=== PATIENT | female | born 1985 | race Caucasian/White ===

== ENCOUNTER 2018-04-20 17:18 | Outpatient (CLI) | payer BC ==
[2018-04-20 18:12] LABS: Bilirubin,Urine Negative (Negative); Glucose,Urine (UA) Negative (Negative); PH, Urine 6.5 (5.0-8.0); Protein,Urine Trace (Negative); Urobilinogen,Urine <2.0 mg/dL (<2.0)
[2018-04-20 18:18] LABS: Appearance,Urine Cloudy (Clear); Bacteria,Urine Rare /hpf; Blood,Urine Trace (Negative); Color,Urine Yellow; Ketones,Urine 1+ (Negative); Leukocyte Esterase,Urine Trace (Negative); Mucus,Urine Few /hpf; Nitrite,Urine Negative (Negative); RBC,Urine 5 /hpf (0-5); Squamous Epithelial Cell,Urine 60 /hpf (0-4); WBC,Urine 2 /hpf (0-5)
[2018-04-20] MEDS ORDERED: DEXTROSE 5%-LACTATED RINGERS 1,000 ML IV ONE (19:15)
[2018-04-20 19:53] VITALS: BP 107/63; PULSE 105; RESP 16
--- NOTE | 2018-04-21 12:47 | P.MSEPDOC ---
Presenting Problems - Arrival Data Date of Arrival on Unit: 04/20/18 Time of Arrival on Unit: 17:18 Mode of Transport: Ambulatory - Complaint Comment: lower abd cramping, light headed, dizzy, episode of diarhhea Medical History - Information : 4 Para: 3 Term: 3 : 0 Abortions: Spontaneous or Elective: 0 Number of Living Children: 3 - Gestational Age Gestational Age by CARLY (wks/days): 27 Weeks and 6 Days Review of Systems - Review of Systems Constitutional: No problems Breast: No problems ENT: No problems Cardiovascular: No problems Respiratory: No problems Gastrointestinal: No problems Genitourinary: No problems Musculoskeletal: No problems Neurological: No problems Skin: No problems Vital Signs - Pulse Right Brachial Pulse Rate: 105 Pulse Assessment Method: Automatic Cuff - Respirations Respiratory Rate: 16 Oxygen Delivery Method: Room Air O2 Sat by Pulse Oximetry: 98 - Blood Pressure Right Arm Blood Pressure: 107/63 Blood Pressure Mean: 77 Blood Pressure Source: Automatic Cuff Medical Screen Scoring (Pre) - Cervical Exam Dilation: 0 cm = 0 Membranes: Intact - Uterine Contractions Frequency: N/A - Maternal Vital Signs Maternal Temperature: N/A Maternal Blood Pressure: N/A Signs of Preeclampsia: N/A Maternal Respirations: N/A - Assessment Baseline FHR: 145 Heart Rate - NICHD Category: Category I (Normal) = 0 Position: N/A Station: N/A - Total Score Total Score (Pre): 0 - Level of Risk Level of Risk: Low (0-5) Physician Notification (Pre) - Notification Comment Comment: Orders to d/c recieved by previous shift following infusion of IV hydration and pulse less than 90 bpm Disposition - Disposition OB Disposition: Discharge to home Discharge Date: 04/20/18 Discharge Time: 19:30 I agree with the RN Medical Screening Exam: Yes Risk & Benefit of care provided described in d/c instruction: Yes Diagnosis: RELATED CONDITIONS, UNSPECIFIED, SECOND TRIMESTER
== END 2018-04-20 19:30 | disposition home or self-care (01) ==
LOC: FBPOP 17:18
PROVIDERS: ATTEND Obstetrics & Gynecology
DX: O26.892 Other specified pregnancy related conditions, second trimester (principal); O62.9 Abnormality of forces of labor, unspecified; R42 Dizziness and giddiness; R51 Headache; Z3A.27 27 weeks gestation of pregnancy
CPT/HCPCS: 81001; 96360; 99214

== ENCOUNTER 2019-03-05 16:42 | Emergency (ER) | payer BC ==
[2019-03-05 16:50] VITALS: TEMP 97.8
[2019-03-05] MEDS ORDERED: METOCLOPRAMIDE 5 MG/ML 2 ML VIAL IVP STA (17:09)
[2019-03-05] MEDS ORDERED: KETOROLAC 30 MG/ML 1 ML VIAL IVP STA (17:09)
[2019-03-05] MEDS ORDERED: diphenhydrAMINE 50 MG/ML 1 ML VIAL IVP STA (17:09)
[2019-03-05] MEDS ORDERED: SODIUM CHLORIDE 0.9% 1,000 ML IV STA (17:09)
[2019-03-05] MEDS ORDERED: methylPREDNISolone SOD SUCCI 250 MG in SODIUM CHLORIDE 0.9% 100 ML IVPB STA (17:09)
--- NOTE | 2019-03-05 18:12 | ED ---
Headache HPI - General Chief Complaint: Headache Stated Complaint: migraine Time Seen by Provider: 03/05/19 16:52 Source: RN notes reviewed, old records reviewed Mode of arrival: ambulatory Limitations: no limitations - History of Present Illness Initial Comments: This is a 31-year-old female the ER for evaluation she presents today for evaluation of headache. History of migraines ER visits positive for migraines. No recent trauma no fevers. No neck pain no pain in her back. No neurological complaints. Patient states the headache is just been progressive with nausea and photophobia just like her prior migraines MD Complaint: headache, "migraine" -: hour(s) Onset Description: gradual Location: frontal Severity: moderate Severity scale (1-10): 4 Quality: aching, throbbing Consistency: intermittent Improves With: nothing Worsens With: none Associated Symptoms: photophobia Treatments Prior to Arrival: none - Related Data On Hormonal Control: No Home Medications Medication Instructions Recorded Confirmed Dextroamphetamine/Amphetamine 20 mg PO BID@0800,1400 03/05/19 03/05/19 [Adderall] PARoxetine [Paxil] See Taper PO DAILY 03/05/19 03/05/19 SUMAtriptan SUCCINATE [Imitrex] 50 mg PO DAILY PRN 03/05/19 03/05/19 buPROPion XL [Wellbutrin Xl] 150 mg PO DAILY 03/05/19 03/05/19 Allergies Allergy/AdvReac Type Severity Reaction Status Date / Time No Known Allergies Allergy Verified 03/05/19 17:27 Review of Systems ROS Statement: Those systems with pertinent positive or pertinent negative responses have been documented in the HPI. ROS Other: All systems not noted in ROS Statement are negative. Past Medical History Additional Past Medical History / Comment(s): migraines History of Any Multi-Drug Resistant Organisms: None Reported Past Surgical History: No Surgical Hx Reported Past Psychological History: Anxiety Smoking Status: Never smoker Past Alcohol Use History: None Reported Past Drug Use History: None Reported General Exam Limitations: no limitations General appearance: alert, in no apparent distress Head exam: Present: atraumatic, normocephalic, normal inspection Eye exam: Present: normal appearance, PERRL, EOMI. Absent: scleral icterus, conjunctival injection, periorbital swelling ENT exam: Present: normal exam, mucous membranes moist Neck exam: Present: normal inspection. Absent: tenderness, meningismus, lymphadenopathy Respiratory exam: Present: normal lung sounds bilaterally. Absent: respiratory distress, wheezes, rales, rhonchi, stridor Cardiovascular Exam: Present: regular rate, normal rhythm, normal heart sounds. Absent: systolic murmur, diastolic murmur, rubs, gallop, clicks GI/Abdominal exam: Present: soft, normal bowel sounds. Absent: distended, tenderness, guarding, rebound, rigid Extremities exam: Present: normal inspection, full ROM, normal capillary refill. Absent: tenderness, pedal edema, joint swelling, calf tenderness Back exam: Present: normal inspection Neurological exam: Present: alert, oriented X3, CN II-XII intact Psychiatric exam: Present: normal affect, normal mood Skin exam: Present: warm, dry, intact, normal color. Absent: rash Course Vital Signs 03/05/19 16:47 Temperature 97.8 F Pulse Rate 111 H Respiratory 20 Rate Blood Pressure 118/76 O2 Sat by Pulse 100 Oximetry - Reevaluation(s) Reevaluation #1: 03/05/19 19:36 Medical record is reviewed including prior ER visits for similar complaint Reevaluation #2: 03/05/19 19:36 Patient's headache is resolved Medical Decision Making - Medical Decision Making 31 female the ER for evaluation of headache. No significant findings on physical exam here in the ER. Patient can be discharged home with headache control currently Disposition Clinical Impression: Migraine, Headache Disposition: HOME SELF-CARE Condition: Good Instructions (If sedation given, give patient instructions): Acute Headache (ED) Is patient prescribed a controlled substance at d/c from ED?: No Referrals: Nonstaff,Physician [Primary Care Provider] - 1-2 days
[2019-03-05] MEDS ORDERED: MORPHINE SULFATE 4 MG/ML SYRINGE IVP STA (19:37)
[2019-03-05] MEDS ORDERED: PROCHLORPERAZINE 5 MG TAB PO STA (19:37)
[2019-03-05] MEDS ORDERED: SUMAtriptan SUCCINATE 50 MG TAB PO STA (19:50)
[2019-03-05 20:50] VITALS: BP 113/73; PULSE 95; RESP 18
== END 2019-03-05 20:56 | disposition home or self-care (01) ==
LOC: EC 16:42
DX: G43.909 Migraine, unspecified, not intractable, without status migrainosus (principal); F41.9 Anxiety disorder, unspecified; Z79.899 Other long term (current) drug therapy; Z53.29 Procedure and treatment not carried out because of patient's decision for other reasons
CPT/HCPCS: 99284; 96365; 96375 ×3; 96361; J1200; J2765; J2930; J1885

== ENCOUNTER 2019-04-11 23:52 | Emergency (ER) | payer BC ==
[2019-04-12] MEDS ORDERED: METOCLOPRAMIDE 5 MG/ML 2 ML VIAL IVP STA (01:42)
[2019-04-12] MEDS ORDERED: SODIUM CHLORIDE 0.9% 1,000 ML IV ONE (01:42)
[2019-04-12] MEDS ORDERED: diphenhydrAMINE 50 MG/ML 1 ML VIAL IVP STA (01:42)
[2019-04-12] MEDS ORDERED: KETOROLAC 30 MG/ML 1 ML VIAL IVP STA (01:42)
--- NOTE | 2019-04-12 01:55 | ED ---
Headache HPI - General Mode of arrival: ambulatory Limitations: no limitations <Ally Akers - Last Filed: 04/12/19 04:41> <Breana Eid - Last Filed: 04/12/19 05:43> - General Chief Complaint: Headache Stated Complaint: Migraine Time Seen by Provider: 04/12/19 01:37 - History of Present Illness Initial Comments: 33-year-old female patient with past medical history significant for migraine headaches presents to the emergency department today for evaluation of headache. Patient states she's had this headache since Friday. States that it is located on the left side of her head and her eye and ear. States it is radiating down her neck. States she has light and sound sensitivity with this. States she has been nauseated and did vomit one time today. Denies any numbness, tingling or weakness to her extremities. Denies blurred or double vision. Patient states this is consistent with her usual migraine pattern and she denies any new symptoms. She denies this being the worse headache of her life. Patient states that she ran out of her Imitrex on Friday. States she has been taking Tylenol Motrin without relief. Patient denies any recent rash, fever, chills, shortness breath, chest pain, abdominal pain, nausea, diarrhea, constipation, back pain, hematuria, dysuria, urinary urgency, urinary frequency, or any other complaints. (Ally Akers) - Related Data Home Medications Medication Instructions Recorded Confirmed Dextroamphetamine/Amphetamine 20 mg PO BID@0800,1400 03/05/19 03/05/19 [Adderall] PARoxetine [Paxil] See Taper PO DAILY 03/05/19 03/05/19 SUMAtriptan SUCCINATE [Imitrex] 50 mg PO DAILY PRN 03/05/19 03/05/19 buPROPion XL [Wellbutrin Xl] 150 mg PO DAILY 03/05/19 03/05/19 Allergies Allergy/AdvReac Type Severity Reaction Status Date / Time No Known Allergies Allergy Verified 03/05/19 17:27 Review of Systems ROS Other: All systems not noted in ROS Statement are negative. <Ally Akers - Last Filed: 04/12/19 04:41> ROS Other: All systems not noted in ROS Statement are negative. <Breana Eid - Last Filed: 04/12/19 05:43> ROS Statement: Those systems with pertinent positive or pertinent negative responses have been documented in the HPI. Past Medical History Additional Past Medical History / Comment(s): migraines History of Any Multi-Drug Resistant Organisms: None Reported Past Surgical History: No Surgical Hx Reported Past Psychological History: Anxiety Smoking Status: Never smoker Past Alcohol Use History: Occasional Past Drug Use History: None Reported <Ally Akers - Last Filed: 04/12/19 04:41> General Exam Limitations: no limitations General appearance: alert, in no apparent distress, other (Well-developed, well- nourished adult female patient in no acute distress. Vital signs upon presentation are temperature 98.1F, pulse 96, respirations 17, blood pressure 115/79, pulse ox 98% on room air.) Eye exam: Present: normal appearance, PERRL, EOMI. Absent: scleral icterus, conjunctival injection, nystagmus, periorbital swelling ENT exam: Present: normal exam, normal oropharynx, mucous membranes moist, TM's normal bilaterally Respiratory exam: Present: normal lung sounds bilaterally. Absent: respiratory distress, wheezes, rales, rhonchi, stridor Cardiovascular Exam: Present: regular rate, normal rhythm, normal heart sounds. Absent: systolic murmur, diastolic murmur, rubs, gallop, clicks GI/Abdominal exam: Present: soft, normal bowel sounds. Absent: distended, tenderness, guarding, rebound, rigid Neurological exam: Present: alert, oriented X3, CN II-XII intact, other (Strength in all 4 extremities is 5/5.) Psychiatric exam: Present: normal affect, normal mood Skin exam: Present: warm, dry, intact, normal color. Absent: rash <Ally Akers - Last Filed: 04/12/19 04:41> Course <Breana Eid - Last Filed: 04/12/19 05:43> Vital Signs 04/11/19 23:59 Temperature 98.1 F Pulse Rate 96 Respiratory 17 Rate Blood Pressure 115/79 O2 Sat by Pulse 98 Oximetry - Reevaluation(s) Reevaluation #1: 04/12/19 05:43 Patient reports feeling better and is ready for discharge home at this time (Breana Eid) Medical Decision Making <Ally Akers - Last Filed: 04/12/19 04:41> - Medical Decision Making 33-year-old female patient presented to the emergency department today for evaluation of migraine headache. Patient has history of migraines and states her symptoms are consistent with her usual migraine pattern. She denies this being the worse headache of her life. She is neurologically intact with no focal deficits. Patient was given IV fluids, Toradol, Reglan, and Benadryl. Upon reevaluation patient reports pain decreased somewhat but is still present. She is requesting something more for discomfort. We added Tylenol, Decadron, and Imitrex. Care is handed over to my attending Dr. Eid who will monitor and follow until disposition. (Ally Akers) - Lab Data Lab Results 04/12/19 Range/Units 01:39 HCG, Qual Not Detected Disposition <Ally Akers - Last Filed: 04/12/19 04:41> Is patient prescribed a controlled substance at d/c from ED?: No <Breana Eid - Last Filed: 04/12/19 05:43> Clinical Impression: Headache Disposition: HOME SELF-CARE Condition: Stable Instructions (If sedation given, give patient instructions): Acute Headache (ED) Referrals: Nonstaff,Physician [REFERRING] - 1-2 days
[2019-04-12] MEDS ORDERED: SUMAtriptan SUCCINATE 50 MG TAB PO STA (03:35)
[2019-04-12] MEDS ORDERED: DEXAMETHASONE SOD PHOSPHATE 10 MG/ML 1 ML VIAL IV STA (03:35)
[2019-04-12] MEDS ORDERED: ACETAMINOPHEN TAB 500 MG TAB PO STA (03:36)
[2019-04-12 06:35] VITALS: BP 127/49; PULSE 75; RESP 18; TEMP 98
== END 2019-04-12 06:07 | disposition home or self-care (01) ==
LOC: EC 23:52
DX: G43.909 Migraine, unspecified, not intractable, without status migrainosus (principal); F41.9 Anxiety disorder, unspecified; Z79.899 Other long term (current) drug therapy
CPT/HCPCS: 36415; 84703; 99283; 96374; 96375 ×3; 96361 ×2; J1200; J1100; J2765; J1885

== ENCOUNTER → 2019-06-16 | Outpatient (CLI) | payer BC ==
--- NOTE | 2019-06-16 12:00 | MR ---
MR brain without contrast HISTORY: Migraine, occipital neuralgia Multiplanar multisequence imaging through the brain Correlation to MR brain 08/03/2015 There is no restricted diffusion. There is no hemorrhage or hydrocephalus. Brain signal is stable. Th ere are normal vascular flow voids. Inflammatory change present in the maxillary sinus right greater than left, ethmoid air cells and right frontal sinus. Orbits show symmetric appearance. The corpus ca llosum, pituitary, cervical medullary junction, cerebellopontine angles are unremarkable. IMPRESSION: Stable brain MRI. Sinus disease.
== END | disposition home or self-care (01) ==
LOC: RADMRIMAIN 10:45
PROVIDERS: ATTEND Psychiatry & Neurology Neurology
DX: G43.009 Migraine without aura, not intractable, without status migrainosus (principal); M54.81 Occipital neuralgia
CPT/HCPCS: 70551

== ENCOUNTER 2019-11-05 11:48 | Emergency (ER) | payer BC ==
[2019-11-05 11:55] VITALS: TEMP 97.6
[2019-11-05] MEDS ORDERED: SODIUM CHLORIDE 0.9% 1,000 ML IV STA (12:05)
[2019-11-05] MEDS ORDERED: MECLIZINE 12.5 MG TAB PO STA (12:05)
[2019-11-05] MEDS ORDERED: METOCLOPRAMIDE 5 MG/ML 2 ML VIAL IVP STA (12:05)
[2019-11-05 12:30] LABS: Basophils % (A) 1 %; Eosinophils # (A) 0.1 k/uL (0-0.7); Eosinophils % (A) 2 %; HCT 38.3 % (34.0-46.0); HGB 12.7 gm/dL (11.4-16.0); Lymphocytes # (A) 0.9 k/uL (1.0-4.8); Lymphocytes % (A) 23 %; MCH 28.9 pg (25.0-35.0); MCHC 33.2 g/dL (31.0-37.0); Mean Platelet Volume 7.2; Monocytes # (A) 0.1 k/uL (0-1.0); Monocytes % (A) 3 %; Neutrophils # (A) 2.9 k/uL (1.3-7.7); Neutrophils % (A) 69 %; Platelet Count 310 k/uL (150-450); RDW 12.3 % (11.5-15.5); WBC 4.1 k/uL (3.8-10.6)
[2019-11-05 12:39] LABS: ALT 13 U/L (4-34); AST 21 U/L (14-36); African American GFR (CKD) >90 (>60 ml/min/1.73 sqM); Albumin 4.4 g/dL (3.5-5.0); Alkaline Phosphatase 58 U/L (38-126); Anion Gap 10 mmol/L; Blood Urea Nitrogen 17 mg/dL (7-17); Calcium 9.5 mg/dL (8.4-10.2); Carbon Dioxide 21 mmol/L (22-30); Chloride 107 mmol/L (98-107); Glucose 132 mg/dL (74-99); Non-African American GFR(CKD) >90 (>60 ml/min/1.73 sqM); Potassium 4.2 mmol/L (3.5-5.1); Sodium 138 mmol/L (137-145); Total Bilirubin 0.6 mg/dL (0.2-1.3); Total Protein 7.1 g/dL (6.3-8.2)
[2019-11-05 13:21] LABS: Amorphous Sediment,Urine Few /hpf; Appearance,Urine Turbid (Clear); Bacteria,Urine Occasional /hpf; Bilirubin,Urine Negative (Negative); Blood,Urine Small (Negative); Color,Urine Yellow; Glucose,Urine (UA) Negative (Negative); Ketones,Urine 1+ (Negative); Leukocyte Esterase,Urine Negative (Negative); Mucus,Urine Many /hpf; Nitrite,Urine Negative (Negative); PH, Urine 8.5 (5.0-8.0); Protein,Urine 2+ (Negative); RBC,Urine 6 /hpf (0-5); Specific Gravity,Urine 1.028 (1.001-1.035); Squamous Epithelial Cell,Urine 15 /hpf (0-4); Urobilinogen,Urine <2.0 mg/dL (<2.0); WBC,Urine 20 /hpf (0-5)
[2019-11-05] MEDS ORDERED: SODIUM CHLORIDE 0.9% 500 ML 500 ML IV STA (13:34)
[2019-11-05] MEDS ORDERED: diphenhydrAMINE 50 MG/ML 1 ML VIAL IVP STA (13:35)
[2019-11-05] MEDS ORDERED: cefTRIAXone IN SWFI 1,000 MG/10 ML SYRINGE IVP STA (14:24)
--- NOTE | 2019-11-05 14:28 | ED ---
Dizziness HPI - General Chief Complaint: Dizziness Stated Complaint: dizziness Time Seen by Provider: 11/05/19 11:55 Source: patient Mode of arrival: ambulatory Limitations: no limitations - History of Present Illness Initial Comments: Patient is a 33-year-old female presenting to emergency Department with complaints of feeling lightheaded as well as nauseous. Patient denies any injury or trauma. She states this started today. She has history of migraines and does take Paxil and Wellbutrin. She denies any pain including no chest pain, shortness of breath, abdominal pain. She denies any diarrhea. She does not believe she is as she just had her menstrual cycle. She has no other complaints at this time. Upon arrival to the ER, patient was tachycardia at 112, rest of vitals normal. - Related Data Home Medications Medication Instructions Recorded Confirmed Dextroamphetamine/Amphetamine 20 mg PO BID@0800,1400 03/05/19 03/05/19 [Adderall] PARoxetine [Paxil] See Taper PO DAILY 03/05/19 03/05/19 SUMAtriptan SUCCINATE [Imitrex] 50 mg PO DAILY PRN 03/05/19 03/05/19 buPROPion XL [Wellbutrin Xl] 150 mg PO DAILY 03/05/19 03/05/19 Previous Rx's Medication Instructions Recorded Cephalexin [Keflex] 500 mg PO BID 5 Days #10 cap 11/05/19 Allergies Allergy/AdvReac Type Severity Reaction Status Date / Time No Known Allergies Allergy Verified 11/05/19 11:51 Review of Systems ROS Statement: Those systems with pertinent positive or pertinent negative responses have been documented in the HPI. ROS Other: All systems not noted in ROS Statement are negative. Past Medical History Additional Past Medical History / Comment(s): migraines History of Any Multi-Drug Resistant Organisms: None Reported Past Surgical History: No Surgical Hx Reported Past Psychological History: Anxiety Smoking Status: Never smoker Past Alcohol Use History: Occasional Past Drug Use History: None Reported General Exam - General Exam Comments Initial Comments: GENERAL: Well-appearing, well-nourished and in no acute distress. HEAD: Atraumatic, normocephalic. EYES: Pupils equal round and reactive to light, extraocular movements intact, sclera anicteric, conjunctiva are normal. ENT: TMs normal, nares patent, oropharynx clear without exudates. Moist mucous membranes. NECK: Normal range of motion, supple without lymphadenopathy or JVD. LUNGS: Breath sounds clear to auscultation bilaterally and equal. No wheezes rales or rhonchi. HEART: Regular rate and rhythm without murmurs, rubs or gallops. ABDOMEN: Soft, nontender, normoactive bowel sounds. No guarding, no rebound. No masses appreciated. : Deferred EXTREMITIES: Normal range of motion, no pitting or edema. No clubbing or cyanosis. NEUROLOGICAL: Normal speech, normal gait. PSYCH: Normal mood, normal affect. SKIN: Warm, Dry, normal turgor, no rashes or lesions noted. Limitations: no limitations Course Vital Signs 11/05/19 11/05/19 11:51 14:39 Temperature 97.6 F Pulse Rate 112 H 86 Respiratory 18 16 Rate Blood Pressure 95/68 103/68 O2 Sat by Pulse 100 100 Oximetry EKG Findings - EKG Comments: EKG Findings:: Ventricular rate 85, AZ interval 124, QTC 404. Normal sinus rhythm, prolonged QT, no acute ST segment changes. Medical Decision Making - Medical Decision Making She is a 33-year-old female presenting with lightheadedness and nausea times today. She was slightly tachycardia and arrival, afebrile. She denies any pain or shortness of breath. Patient's labs show no acute abnormalities, UA is significant for infection and dehydration. She is not . Patient was given a liter and half of fluids as well as Zofran and reports improvement in her symptoms. Her vital signs have stabilized. Patient was given Rocephin and will be started on Keflex as outpatient. She will follow-up with PCP. Urine culture is pending at this time. She is stable for discharge and she is in agreement this plan of care. Return parameters were discussed with the patient and she verbalized understanding case discussed with Dr. Bledsoe. - Lab Data Result diagrams: 11/05/19 12:18 11/05/19 12:18 Lab Results 11/05/19 11/05/19 11/05/19 Range/Units 12:18 12:18 13:03 WBC 4.1 (3.8-10.6) k/uL RBC 4.40 (3.80-5.40) m/uL Hgb 12.7 (11.4-16.0) gm/dL Hct 38.3 (34.0-46.0) % MCV 87.0 (80.0-100.0) fL MCH 28.9 (25.0-35.0) pg MCHC 33.2 (31.0-37.0) g/dL RDW 12.3 (11.5-15.5) % Plt Count 310 (150-450) k/uL Neutrophils % 69 % Lymphocytes % 23 % Monocytes % 3 % Eosinophils % 2 % Basophils % 1 % Neutrophils # 2.9 (1.3-7.7) k/uL Lymphocytes # 0.9 L (1.0-4.8) k/uL Monocytes # 0.1 (0-1.0) k/uL Eosinophils # 0.1 (0-0.7) k/uL Basophils # 0.0 (0-0.2) k/uL Sodium 138 (137-145) mmol/L Potassium 4.2 (3.5-5.1) mmol/L Chloride 107 (98-107) mmol/L Carbon Dioxide 21 L (22-30) mmol/L Anion Gap 10 mmol/L BUN 17 (7-17) mg/dL Creatinine 0.57 (0.52-1.04) mg/dL Est GFR (CKD-EPI)AfAm >90 (>60 ml/min/1.73 sqM) Est GFR (CKD-EPI)NonAf >90 (>60 ml/min/1.73 sqM) Glucose 132 H (74-99) mg/dL Calcium 9.5 (8.4-10.2) mg/dL Total Bilirubin 0.6 (0.2-1.3) mg/dL AST 21 (14-36) U/L ALT 13 (4-34) U/L Alkaline Phosphatase 58 (38-126) U/L Total Protein 7.1 (6.3-8.2) g/dL Albumin 4.4 (3.5-5.0) g/dL Urine Color Urine Appearance (Clear) Urine pH (5.0-8.0) Ur Specific [place] (1.001-1.035) Urine Protein (Negative) Urine Glucose (UA) (Negative) Urine Ketones (Negative) Urine Blood (Negative) Urine Nitrite (Negative) Urine Bilirubin (Negative) Urine Urobilinogen (<2.0) mg/dL Ur Leukocyte Esterase (Negative) Urine RBC (0-5) /hpf Urine WBC (0-5) /hpf Ur Squamous Epith Cells (0-4) /hpf Amorphous Sediment (None) /hpf Urine Bacteria (None) /hpf Urine Mucus (None) /hpf Urine HCG, Qual Not Detected (Not Detectd) 11/05/19 Range/Units 13:03 WBC (3.8-10.6) k/uL RBC (3.80-5.40) m/uL Hgb (11.4-16.0) gm/dL Hct (34.0-46.0) % MCV (80.0-100.0) fL MCH (25.0-35.0) pg MCHC (31.0-37.0) g/dL RDW (11.5-15.5) % Plt Count (150-450) k/uL Neutrophils % % Lymphocytes % % Monocytes % % Eosinophils % % Basophils % % Neutrophils # (1.3-7.7) k/uL Lymphocytes # (1.0-4.8) k/uL Monocytes # (0-1.0) k/uL Eosinophils # (0-0.7) k/uL Basophils # (0-0.2) k/uL Sodium (137-145) mmol/L Potassium (3.5-5.1) mmol/L Chloride (98-107) mmol/L Carbon Dioxide (22-30) mmol/L Anion Gap mmol/L BUN (7-17) mg/dL Creatinine (0.52-1.04) mg/dL Est GFR (CKD-EPI)AfAm (>60 ml/min/1.73 sqM) Est GFR (CKD-EPI)NonAf (>60 ml/min/1.73 sqM) Glucose (74-99) mg/dL Calcium (8.4-10.2) mg/dL Total Bilirubin (0.2-1.3) mg/dL AST (14-36) U/L ALT (4-34) U/L Alkaline Phosphatase (38-126) U/L Total Protein (6.3-8.2) g/dL Albumin (3.5-5.0) g/dL Urine Color Yellow Urine Appearance Turbid H (Clear) Urine pH 8.5 H (5.0-8.0) Ur Specific [place] 1.028 (1.001-1.035) Urine Protein 2+ H (Negative) Urine Glucose (UA) Negative (Negative) Urine Ketones 1+ H (Negative) Urine Blood Small H (Negative) Urine Nitrite Negative (Negative) Urine Bilirubin Negative (Negative) Urine Urobilinogen <2.0 (<2.0) mg/dL Ur Leukocyte Esterase Negative (Negative) Urine RBC 6 H (0-5) /hpf Urine WBC 20 H (0-5) /hpf Ur Squamous Epith Cells 15 H (0-4) /hpf Amorphous Sediment Few H (None) /hpf Urine Bacteria Occasional H (None) /hpf Urine Mucus Many H (None) /hpf Urine HCG, Qual (Not Detectd) Disposition Clinical Impression: Dehydration, UTI (urinary tract infection) Disposition: HOME SELF-CARE Condition: Stable Instructions (If sedation given, give patient instructions): Dehydration (ED), Urinary Tract Infection in Women (ED) Additional Instructions: Please return to the Emergency Department if symptoms worsen or any other concerns. Follow-up with PCP. Take antibiotics as prescribed. Increase fluid intake. Prescriptions: Cephalexin [Keflex] 500 mg PO BID 5 Days #10 cap Is patient prescribed a controlled substance at d/c from ED?: No Referrals: None,Stated [Primary Care Provider] - 1-2 days
[2019-11-05 14:40] VITALS: BP 103/68; PULSE 86; RESP 16
== END 2019-11-05 14:47 | disposition home or self-care (01) ==
LOC: EC 11:48
DX: E86.0 Dehydration (principal); N39.0 Urinary tract infection, site not specified; R00.0 Tachycardia, unspecified; R11.0 Nausea; F41.9 Anxiety disorder, unspecified; Z79.899 Other long term (current) drug therapy; Z86.69 Personal history of other diseases of the nervous system and sense organs; Z53.8 Procedure and treatment not carried out for other reasons
CPT/HCPCS: 36415; 93005; 80053; 85025; 81001; 81025; 87086; 99284; 96374; 96375; 96361 ×2; J2765; J0696